=== PATIENT | male | born 1935 | race Caucasian/White ===

== ENCOUNTER 2021-10-28 10:22 | Observation (INO) ==
--- NOTE | 2021-10-28 10:35 | Emergency Department Note ---
Impression & Plan Syncopal episodes, Chronic anticoagulation, HTN (hypertension) ED Provider Note NAME: ARASH BECERRA AGE: 86 SEX: M : 1935 ARRIVES VIA: Ambulance INFORMANT: Patient ED PROVIDER(S): Murtaza Duarte DO CHIEF COMPLAINT: syncope HPI: Patient is an 86-year-old male who presents to the ER for syncope. He was sitting in the tamez's chair and felt lightheaded and passed out. He had no headache or chest pain. No belly pain, nausea, vomiting, or diarrhea. No dy suria, urgency, or frequency. No other exacerbating or remitting factors. Patient was brought in by EMS and bradycardia down again and passed out but at that time he vomited. No other exacerbating or remitting factors. He does have a history of hypertension hyperlipidemia. ROS: See above HPI for pertinent positives & negatives. A total of 10 systems reviewed and were otherwise negative. PAST MEDICAL HISTORY:See Below PAST SURGICAL HISTORY:See Below FAMILY HISTORY:See Below SOCIAL HISTORY:See Below HOME MEDICATIONS:See Below ALLERGIES:See Below VITALS:See Below PHYSICAL EXAMINATION: GENERAL: Sitting up in bed, alert, well appearing, well nourished, no distress, non-toxic EYE EXAM: normal conjunctiva. PERRL and EOM's grossly intact. OROPHARYNX: no exudate, no erythema, lips, buccal mucosa, and tongue normal and mucous membranes are moist NECK: supple, no nuchal rigidity, no adenopathy, non-tender LUNGS: Clear to auscultation. Normal chest wall mechanics HEART: no murmurs, S1 normal and S2 normal ABDOMEN: abdomen soft, non-tender, normo-active bowel sounds, no masses, no rebound or guarding. UPPER EXTREMITIES: upper extremities are grossly normal. LOWER EXTREMITIES: No pitting edema. NEURO EXAM: Normal sensorium, cranial nerves II-XII intact, normal speech, no weakness of arms, no weakness of legs. Gnueli-uq-legx intact. No drift. MEDICAL DECISION MAKING: Patient is an 86-year-old male who presents the ER for the above-stated complaint. IV was established blood was obtained. Labs show no significant leukocytosis and mild anemia at 13.3. INR was therapeutic at 3.3. BMP on LFTs bilirubin was unremarkable. Troponins were negative. Lipase was unremarkable. Covid was negative. EKG showed a sinus bradycardia with a first-degree AV blo ck. Chest x-ray was unremarkable. He is completely neurologically intact. He was updated bedside. Discussed with hospitalist for further evaluation due to recurrent syncope/x3. Discussed with Pt concerning signs and symptoms to watch out for. Pt was instructed to follow up with their PCP and discussed with the patient their option to return to the ED at anytime for persistent or worsening symptoms. The appropriate anticipatory guidance and out-patient management, including indications for return to the emergency department, were explained at length to the patient and understood. Triage Nursing notes reviewed. Limited review of prior medical records performed Vital Signs: reviewed and remarkable for no significant abnormalities Differential diagnosis: Differential diagnoses includes but is not limited to acute coronary syndrome, myocardial infarction, pericarditis, pulmonary embolus, aortic dissection, pneumonia, pneumothorax, musculoskeletal, shingles, esophageal. ER treatment provided: See below Diagnostics interpreted by me: ECG: Sinus bradycardia rate of 54 a first-degree AV block Normal axis No PVCs QTC 432 Cardiac Monitoring: An order was placed for continuous cardiac monitoring. The monitor shows a rate of 55 with sinus rhythm. Laboratory studies: As stated above and show below. Imaging studies: See below Consultation(s): Discussed with patient and hospitalist for further evaluation Procedures: none Critical Care: None Past Med/Surg History Medical History (Updated 10/28/21 @ 16:41 by Murtaza Duarte DO) DVT (deep venous thrombosis) Pulmonary emboli Surgical History (Updated 10/28/21 @ 13:04 by Angely Fu PA-C) H/O inguinal hernia repair Family History (Updated 10/28/21 @ 13:05 by Angely Fu PA-C) Mother Heart disease Hypertension Father Cancer Social History Smoking Status: Former smoker Smoking End Date: ; Second Hand Exposure: Yes; Do You Dip or Chew Tobacco: No; Tobacco Cessation Education Requested by Patient: No Hx Alcohol Use: Yes Alcohol type: wine and hard liquor Hx Substance Use: No Preferred Language: Croatian Communication Ability: Effective 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 Beliefs That Will Affect Care: None Current Living Situation: Spouse Other Information That Helps Us Care for You: No Feels Safe at Home: Yes Safety Concerns: Feels Safe At This Time Assistive Devices: Glasses Allergies Allergies Allergy/AdvReac Type Severity Reaction Status Date / Time No Known Allergies Allergy Unverified 10/28/21 11:28 Home Meds Home Medications Medication Instructions Recorded Confirmed atorvastatin 40 mg tablet 40 mg PO QPM 10/28/21 10/28/21 cholecalciferol (vitamin D3) 25 25 - 50 mcg PO DAILY 10/28/21 10/28/21 mcg (1,000 unit) tablet (Vitamin D3) lisinopril 10 1 tab PO QPM 10/28/21 10/28/21 mg-hydrochlorothiazide 12.5 mg tablet magnesium oxide 400 mg PO DAILY 10/28/21 10/28/21 terazosin 2 mg capsule 2 mg PO QPM 10/28/21 10/28/21 warfarin 5 mg tablet 2.5 mg PO 5XWK 10/28/21 10/28/21 warfarin 5 mg tablet 5 mg PO 2XWK 10/28/21 10/28/21 Results & Data (ED) Vital Signs Vital Signs - 24 hr 10/28/21 10:28 10/28/21 10:31 10/28/21 11:00 Pulse Rate 54 L Pulse Rate [Apical] 61 Respiratory Rate 15 14 Respiratory Effort / Characteristics Non-Labored Spontaneous Non-Labored Spontaneous Respiratory Depth Normal Normal Blood Pressure 154/72 H Blood Pressure [Right Arm] 146/70 H Blood Pressure Mean 99 Blood Pressure Mean [Right Arm] 95 Blood Pressure Position Sitting Pulse Oximetry 98 98 98 Oxygen Delivery Method Room Air Room Air Room Air Sepsis Recent Fever Within 48 Hours No Sepsis New/Unexplained Change in Mental Status No Sepsis Action Taken by Nursing No Action Required 10/28/21 13:00 Pulse Rate Pulse Rate [Apical] 54 L Respiratory Rate 13 Respiratory Effort / Characteristics Respiratory Depth Normal Blood Pressure Blood Pressure [Right Arm] 147/77 H Blood Pressure Mean Blood Pressure Mean [Right Arm] 100 Blood Pressure Position Pulse Oximetry 95 Oxygen Delivery Method Room Air Sepsis Recent Fever Within 48 Hours Sepsis New/Unexplained Change in Mental Status Sepsis Action Taken by Nursing Laboratory Data Result diagrams: 10/28/21 10:37 10/28/21 10:37 Lab Results 10/28/21 10/28/21 10/28/21 Range/Units 10:37 10:37 10:37 WBC 6.26 (4.8-10.8) K/uL RBC 4.24 L (4.7-6.1) M/uL Hgb 13.3 L (14.0-18.0) g/dL Hct 38.0 L (42-52) % MCV 89.6 (80-100) fL MCH 31.4 (25-34) pg MCHC 35.0 (32-36) g/dL RDW Std Deviation 42.4 (36.4-46.3) fL RDW Coeff of Mary 13.1 (11.5-14.5) % Plt Count 154 (130-400) K/uL MPV 9.9 (7.4-10.4) fL Immature Gran % (Auto) 0.2 % Neut % (Auto) 65.4 % Lymph % (Auto) 24.6 % [place] % (Auto) 8.0 % Eos % (Auto) 1.6 % Baso % (Auto) 0.2 % Neut # (Auto) 4.10 (1.4-6.5) K/uL Lymph # (Auto) 1.54 (1.2-3.4) K/uL [place] # (Auto) 0.50 (0.11-0.59) K/uL Eos # (Auto) 0.10 (0-0.5) K/uL Baso # (Auto) 0.01 (0-0.2) K/uL Immature Gran # (Auto) 0.01 (0.00-0.02) K/uL PT (9.0-12.0) Seconds INR (0.9-1.1) Sodium 136 (136-145) mmol/L Potassium 3.6 (3.5-5.1) mmol/L Chloride 104 (98-107) mmol/L Carbon Dioxide 25 (21-32) mmol/L Anion Gap 7 (3-11) BUN 23 (6-23) mg/dl Creatinine 1.05 (0.6-1.4) mg/dl Est Cr Clr Drug Dosing 54.8 ml/min Est GFR ( Amer) 74.7 ml/min Est GFR (Non-Af Amer) 64.4 ml/min BUN/Creatinine Ratio 21.9 H (10-20) Glucose 129 H (70-99(Fasting)) mg/dl Calcium 9.6 (8.5-10.1) mg/dl Total Bilirubin 0.5 (0.2-1.0) mg/dl AST 21 (13-39) U/L ALT 19 (7-52) U/L Alkaline Phosphatase 77 (34-104) U/L Troponin I High Sens Cancelled 12.8 Total Protein 6.7 (6.0-8.3) gm/dl Albumin 4.0 (3.4-5.0) gm/dl Globulin 2.7 (2.5-4.0) gm/dl Albumin/Globulin Ratio 1.5 (0.9-2) Lipase 11 (11-82) U/L SARS-CoV-2, RNA, NAAT (NEGATIVE) 10/28/21 10/28/21 10/28/21 Range/Units 10:37 10:45 12:12 WBC (4.8-10.8) K/uL RBC (4.7-6.1) M/uL Hgb (14.0-18.0) g/dL Hct (42-52) % MCV (80-100) fL MCH (25-34) pg MCHC (32-36) g/dL RDW Std Deviation (36.4-46.3) fL RDW Coeff of Mary (11.5-14.5) % Plt Count (130-400) K/uL MPV (7.4-10.4) fL Immature Gran % (Auto) % Neut % (Auto) % Lymph % (Auto) % [place] % (Auto) % Eos % (Auto) % Baso % (Auto) % Neut # (Auto) (1.4-6.5) K/uL Lymph # (Auto) (1.2-3.4) K/uL [place] # (Auto) (0.11-0.59) K/uL Eos # (Auto) (0-0.5) K/uL Baso # (Auto) (0-0.2) K/uL Immature Gran # (Auto) (0.00-0.02) K/uL PT 32.9 H (9.0-12.0) Seconds INR 3.3 H (0.9-1.1) Sodium (136-145) mmol/L Potassium (3.5-5.1) mmol/L Chloride (98-107) mmol/L Carbon Dioxide (21-32) mmol/L Anion Gap (3-11) BUN (6-23) mg/dl Creatinine (0.6-1.4) mg/dl Est Cr Clr Drug Dosing ml/min Est GFR ( Amer) ml/min Est GFR (Non-Af Amer) ml/min BUN/Creatinine Ratio (10-20) Glucose (70-99(Fasting)) mg/dl Calcium (8.5-10.1) mg/dl Total Bilirubin (0.2-1.0) mg/dl AST (13-39) U/L ALT (7-52) U/L Alkaline Phosphatase (34-104) U/L Troponin I High Sens 10.8 Total Protein (6.0-8.3) gm/dl Albumin (3.4-5.0) gm/dl Globulin (2.5-4.0) gm/dl Albumin/Globulin Ratio (0.9-2) Lipase (11-82) U/L SARS-CoV-2, RNA, NAAT NEGATIVE (NEGATIVE) Imaging Data Radiologist's Impression: Chest X-Ray 10/28/21 10:31 XR chest 1V portable CLINICAL HISTORY: Chest Pain. COMPARISON STUDY: No previous studies for comparison. TECHNIQUE: 1 view of the chest FINDINGS: Single frontal view of the chest demonstrates the cardiomediastinal silhouette to be within normal limits. The lungs are clear of alveolar opacities. There is no evidence for pleural effusion. There is no evidence for vascular congestion. There is no acute osseous pathology. IMPRESSION: 1. No acute cardiopulmonary disease. ACT 112: Negative or not required by law. Electronically signed by: Scott Sierra M.D. 10/28/2021 10:58 AM Discharge Plan Visit Data Chief Complaint: Syncope Stated Complaint: SYNCOPE ED Provider: Murtaza Duarte Discharge Problem: Syncopal episodes, Chronic anticoagulation, HTN (hypertension) Patient Disposition: Admitted As Inpatient Discharge Instructions Interventions: ED Discharge Assessment Last Done: 10/28/21 14:46
[2021-10-28 10:49] LABS: Basophils # (auto) 0.01 K/uL (0-0.2); Basophils % (auto) 0.2 %; Eosinophils % (auto) 1.6 %; Hemoglobin 13.3 g/dL (14.0-18.0); Immature Granulocytes # (auto) 0.01 K/uL (0.00-0.02); Immature Granulocytes % (auto) 0.2 %; Lymphocytes # (auto) 1.54 K/uL (1.2-3.4); Lymphocytes % (auto) 24.6 %; Mean Corpuscular Hemoglobin 31.4 pg (25-34); Mean Corpuscular Volume 89.6 fL (80-100); Mean Platelet Volume 9.9 fL (7.4-10.4); Neutrophils % (auto) 65.4 %; Platelet Count 154 K/uL (130-400); RDW Coefficient of Variation 13.1 % (11.5-14.5); RDW Standard Deviation 42.4 fL (36.4-46.3); Red Blood Count 4.24 M/uL (4.7-6.1); White Blood Count 6.26 K/uL (4.8-10.8)
--- NOTE | 2021-10-28 10:59 | XRay Report ---
XR chest 1V portable CLINICAL HISTORY: Chest Pain. COMPARISON STUDY: No previous studies for comparison. TECHNIQUE: 1 view of the chest FINDINGS: Single frontal view of the chest demonstrates the cardiomediastinal silhouette to be within normal li mits. The lungs are clear of alveolar opacities. There is no evidence for pleural effusion. There is no evidence for vascular congestion. There is no acute osseous pathology. IMPRESSION: 1. No acute cardiopulmonary disease. ACT 112: Negative or not required by law. Electronically signed by: Scott Sierra M.D. 10/28/2021 10:58 AM
[2021-10-28 11:26] LABS: Albumin Globulin Ratio 1.5 (0.9-2); BUN Creatinine Ratio 21.9 (10-20); Bilirubin,Total 0.5 mg/dl (0.2-1.0); Calcium 9.6 mg/dl (8.5-10.1); Creatinine Clr Calc Pharmacy 54.8 ml/min; Est GFR (African American) 74.7 ml/min; Est GFR (Non-African American) 64.4 ml/min; Globulin 2.7 gm/dl (2.5-4.0); Potassium 3.6 mmol/L (3.5-5.1); Total Protein 6.7 gm/dl (6.0-8.3)
[2021-10-28 11:28] LABS: Troponin I High Sensitivity 12.8 pg/ml (0-20)
--- NOTE | 2021-10-28 12:57 | History & Physical Report ---
Date of Service October 28, 2021 Assessment & Plan (1) Syncopal episodes: Plan: - Admit to tele for observation for r/o of syncopal episodes. Hx of syncope years ago was due to PVCs vs vasovagal episode today from being in neck flexion position for cazares trimming, towel around neck during hair being cut may have also precipitated syncope. - Trended cardiac biomarkers, negative x 2 sets with high sensitivity trops - EKG reviewed from previous in [facility] with attending-- has a slight Twave inversion in III but otherwise is grossly unchanged. Pt denies any cardiac symptoms during evaluation. - Check 2 D echo and carotid doppler - PT/OT consulted - Cont lisionpril/hctz, terazosin, and coumadin - Consider cardiology consult pending course (2) Chronic anticoagulation: Plan: - hx of DVT and PE, chronic - Check INR now, follow with am labs (3) HLD (hyperlipidemia): Plan: - Cont statin therapy (4) HTN (hypertension): Plan: - Continue antihypertensives as above DVT ppx: -teds, coumadin CODE: Full - discussed with the patient at bedside Dispo: From home, lives with Deepti, keep on observation, likely dc within 24 hours. History of Present Illness Chief Complaint: Syncopal episode Primary Care Provider: Tereso Randall, DO This is an 86 yo M with PMhx of HTN, HLD, DVT bilaterally and PE on chronic anticoagulation, hx of vasovagal syncope, who presents for complaints of syncopal episodes x 2 earlier today. Pt reports feeling well, like his usual self within the past 24 hours. Pt dropped his car off at a local garage for service, and proceeded to walk 4 blocks to the [place]. He typically is very physically active, walking, participating in 15 deep knee squats daily, but felt like it was somewhat difficult this morning due to muscle stiffness and a little soreness. He was out raking his yard yesterday, but felt fine at that time. Once to the [place], the tamez cut his hair, and then shaved/trimmed up his cazares which hadn't been done in the past 2 years because of COVID pandemic. After sitting in the chair for at least 15 minutes he passed out, but didn't fall out of the chair, no trauma or injuryies sustained. Then he came to, and felt the return of dizziness and diaphoresis, and when he came to the second time, was lying on the floor. He vomited after the second syncopal episode. His who witnessed the event says that he was lowered to the ground. EMS arrived and transported him to the ER. He denies any chest pain, shortness of breath, dizziness, or changes in vision. This passing out has happened to him before but it was at least 10 years ago, where he was told it could have been due to PVCs vs vasovagal episodes. He follows routinely with cardiology, Dr. Goldberg, and saw him a few months ago with a good reort. He denies any recent medication changes and did not miss any medications this morning. He is asking for food as hasn't eaten since 7 am. Pt denies any other current complaints, and feels he is back at his baseline. Denies smoking history or tobacco use. Admits to having one rivera drink daily in the evenings with his . Allergies Allergy/AdvReac Type Severity Reaction Status Date / Time No Known Allergies Allergy Unverified 10/28/21 11:28 Home Medications Medication Instructions Recorded Confirmed Type atorvastatin 40 mg tablet 40 mg PO QPM 10/28/21 10/28/21 History cholecalciferol (vitamin D3) 25 25 - 50 mcg PO DAILY 10/28/21 10/28/21 History mcg (1,000 unit) tablet (Vitamin D3) lisinopril 10 1 tab PO QPM 10/28/21 10/28/21 History mg-hydrochlorothiazide 12.5 mg tablet magnesium oxide 400 mg PO DAILY 10/28/21 10/28/21 History terazosin 2 mg capsule 2 mg PO QPM 10/28/21 10/28/21 History warfarin 5 mg tablet 2.5 mg PO 5XWK 10/28/21 10/28/21 History warfarin 5 mg tablet 5 mg PO 2XWK 10/28/21 10/28/21 History Past Med/Surg History Medical History (Updated 10/28/21 @ 14:04 by Angely Fu PA-C) DVT (deep venous thrombosis) Pulmonary emboli Surgical History (Updated 10/28/21 @ 13:04 by Angely Fu PA-C) H/O inguinal hernia repair Family History (Updated 10/28/21 @ 13:05 by Angely Fu PA-C) Mother Heart disease Hypertension Father Cancer Social History Smoking Status: Never smoker Feels Safe at Home: Yes Review of Systems Review of Systems: Constitutional: No fever, sweats or chills Eyes: No diplopia, no worsening or blurred vision ENT: normal hearing, no trouble swallowing Respiratory: No cough, sputum, dyspnea at rest or on exertion Cardiovascular: No chest pain, tightness or palpitations Abdomen: No pain, nausea, vomiting, diarrhea or constipation Musculoskeletal: As per HPI. No joint pain, calf pain, swelling Neurologic: No weakness, numbness/tingling, or balance problems Psychiatric: No anxiety or depression Skin: No rash or itch Physical Exam Physical Exam: General: awake, alert, no apparent distress, appears younger than stated age Head: Normocephalic, atraumatic ENT: PERRL, EOMI, no pharyngeal exudate, mucous membranes moist Chest: Clear to auscultation, on room air, no adventitious breath sounds Cardiac: Regular rate and rhythm with few PVCs, no carotid bruits, no cardiac murmur, no JVD, normal peripheral pulses, good capillary refill Abdominal: NABS x 4 quadrants, soft, nondistended, nontender to palpation, no rebound or guarding Extremities: Normal inspection, no peripheral edema or erythema, calfs nontender to palpation Psych: Normal mood and affect Neuro: AAO x 3, strength intact bilaterally and rated 5/5, no motor deficits, speech is clear, no peripheral sensory deficits Results & Data Results & Data ([facility]) Vital Signs (Past 12 Hours) Vital Signs Pulse Pulse Resp BP BP Pulse Ox 10/28/21 11:00 61 14 146/70 H 98 10/28/21 10:31 98 10/28/21 10:28 54 L 15 154/72 H 98 Laboratory Results 10/28/21 10/28/21 10/28/21 12:12 10:45 10:37 WBC RBC Hgb Hct MCV MCH MCHC RDW Std Deviation RDW Coeff of Mary Plt Count MPV Immature Gran % (Auto) Neut % (Auto) Lymph % (Auto) [place] % (Auto) Eos % (Auto) Baso % (Auto) Neut # (Auto) Lymph # (Auto) [place] # (Auto) Eos # (Auto) Baso # (Auto) Immature Gran # (Auto) Sodium 136 Potassium 3.6 Chloride 104 Carbon Dioxide 25 Anion Gap 7 BUN 23 Creatinine 1.05 Est Cr Clr Drug Dosing 54.8 Est GFR ( Amer) 74.7 Est GFR (Non-Af Amer) 64.4 BUN/Creatinine Ratio 21.9 H Glucose 129 H Calcium 9.6 Total Bilirubin 0.5 AST 21 ALT 19 Alkaline Phosphatase 77 Troponin I High Sens 10.8 12.8 Total Protein 6.7 Albumin 4.0 Globulin 2.7 Albumin/Globulin Ratio 1.5 Lipase 11 SARS-CoV-2, RNA, NAAT NEGATIVE 10/28/21 10/28/21 10:37 10:37 WBC 6.26 RBC 4.24 L Hgb 13.3 L Hct 38.0 L MCV 89.6 MCH 31.4 MCHC 35.0 RDW Std Deviation 42.4 RDW Coeff of Mary 13.1 Plt Count 154 MPV 9.9 Immature Gran % (Auto) 0.2 Neut % (Auto) 65.4 Lymph % (Auto) 24.6 [place] % (Auto) 8.0 Eos % (Auto) 1.6 Baso % (Auto) 0.2 Neut # (Auto) 4.10 Lymph # (Auto) 1.54 [place] # (Auto) 0.50 Eos # (Auto) 0.10 Baso # (Auto) 0.01 Immature Gran # (Auto) 0.01 Sodium Potassium Chloride Carbon Dioxide Anion Gap BUN Creatinine Est Cr Clr Drug Dosing Est GFR ( Amer) Est GFR (Non-Af Amer) BUN/Creatinine Ratio Glucose Calcium Total Bilirubin AST ALT Alkaline Phosphatase Troponin I High Sens Cancelled Total Protein Albumin Globulin Albumin/Globulin Ratio Lipase SARS-CoV-2, RNA, NAAT Diagnostic Findings Chest X-Ray 10/28/21 10:31 XR chest 1V portable CLINICAL HISTORY: Chest Pain. COMPARISON STUDY: No previous studies for comparison. TECHNIQUE: 1 view of the chest FINDINGS: Single frontal view of the chest demonstrates the cardiomediastinal silhouette to be within normal limits. The lungs are clear of alveolar opacities. There is no evidence for pleural effusion. There is no evidence for vascular congestion. There is no acute osseous pathology. IMPRESSION: 1. No acute cardiopulmonary disease. ACT 112: Negative or not required by law. Electronically signed by: Scott Sierra M.D. 10/28/2021 10:58 AM ECG Additional Comments: 28-OCT-2021 10:30:40 [facility]-EDSTAT ROUTINE RETRIEVAL Sinus bradycardia with 1st degree A-V block Otherwise normal ECG No previous ECGs available 25mm/[id number] 241CID: 3Referred by: ED Unconfirmed Vent. rate 54 BPM OK interval 240 ms QRS duration 112 ms QT/QTc 456/432 ms Code Status & VTE Plan Code Status Full code - discussed with the patient at bedside Supervising Physician Co-Signing Physician Notes Pt is a 86 y/o M with hx of DVT/PE on Coumadin, HLD, 1st degree heart block, hx of vasovagal syncope, HTN admitted for syncope with prodromal syndrome. Per pt he was getting a haircut and started to feel light headed with darkening of the vision. Unsure how long he lost consciousness for and denied any head trauma. No confusion after the syncopal episode. Denied any CP or palpitation or SOB before the syncope. Received his 4th COVID vaccine 4 days ago: denied any recent GI symptoms or severe SE from the vaccine Echo 05/2019: The qualitative LV ejection fraction is 55-59% (normal). The LV wall thickness is mildly increased (concentric). The basal septum is thickened and angulated consistent with sigmoid septum. The right ventricular systolic function is normal as assessed by tricuspid annular plane systolic excursion (TAPSE) (normal >1.7 cm). The left atrium is moderately enlarged (42-48 ml/m^2). The left ventricular diastolic function is mildly abnormal (grade I). Mild aortic valve regurgitation is present. Mild tricuspid regurgitation is present. There is mild pulmonary regurgitation. PE: NAD Cardiac: Normal S1/S2, possible systolic murmur Lungs: CTA, no wheezing or crackles Abd: ND, NT, soft MSK: no edema Psych: AAOx3, normal affect A/P: Syncope: -likely vasovagal -VSS in the ER except slight increase in BP -Hs Trop: neg x2 -EKG: TWI on lead III (which is new), sinus bradycardia with 1st degree heart block -due to age and syncope with murmur will get Echo, and carotid Doppler --- depending on the tele report and echo will consult cards -admit to tele -will continue his HTN meds Agree with A/P by Angely Fu PA-C
[2021-10-28 14:42] LABS: INR 3.3 (0.9-1.1); Prothrombin Time 32.9 Seconds (9.0-12.0)
[2021-10-28] MEDS ORDERED: ACETAMINOPHEN 325 MG TAB PO PRN (15:27)
[2021-10-28] MEDS ORDERED: ONDANSETRON INJ 2 MG/ML 2 ML VIAL IV PRN (15:27)
[2021-10-28] MEDS ORDERED: LISINOPRIL/HCTZ 10/12.5MG TAB PO ONE (17:15)
[2021-10-28] MEDS ORDERED: ATROPINE SULFATE 0.1 MG/ML 10ML SYR IV ONE (20:14)
[2021-10-28] MEDS ORDERED: TERAZOSIN HCL 1 MG CAP PO SCH (21:00)
[2021-10-28] MEDS ORDERED: LISINOPRIL/HCTZ 10/12.5MG TAB PO SCH ×2 (21:00)
[2021-10-28] MEDS ORDERED: ATORVASTATIN 40 MG TAB PO SCH (21:00)
--- NOTE | 2021-10-28 21:01 | Ultrasound Report ---
ULTRASOUND OF THE CAROTID ARTERIES CLINICAL HISTORY: vasovagal vs cardiac etiology of syncope COMPARISON: None available at the time of this dictation. TECHNIQUE: Real-time, grayscale, and color Doppler sonography of the carotid arteries is performed. I mages are reviewed in the transverse and longitudinal planes. FINDINGS: The carotid arteries are patent bilaterally and demonstrate antegrade flow. There is moderate atheros clerotic plaque on the right and moderate atherosclerotic plaque on the left. Normal doppler arterial waveforms are seen throughout. Velocity measurements are listed below. Common carotid peak systolic velocity (cm/sec): RIGHT: 88 LEFT: 108 ICA peak systolic velocity (cm/sec): RIGHT: 86 LEFT: 87 ICA/CC peak systolic ratio: RIGHT: 0.98 LEFT: 0.81 Antegrade flow was shown in the vertebral arteries. The external carotid arteries are patent. IMPRESSION: 1. There is no sonographic evidence of hemodynamically significant stenosis in the right or left car otid arterial system. 2. Antegrade flow is shown in the vertebral arteries. Society of Radiologists in Ultrasound consensus guidelines: Normal: ICA PSV is <125 cm/sec and no plaque or intimal thickening is visible sonographically additional criteria include ICA/CCA PSV ratio <2.0 and ICA EDV <40 cm/sec <50% ICA stenosis: ICA PSV is <125 cm/sec and plaque or intimal thickening is visible sonographically additional criteria include ICA/CCA PSV ratio <2.0 and ICA EDV <40 cm/sec 50-69% ICA stenosis: ICA PSV is 125-230 cm/sec and plaque is visible sonographically additional criteria include ICA/CCA PSV ratio of 2.0-4.0 and ICA EDV of 40-100 cm/sec ?70% ICA stenosis but less than near occlusion: ICA PSV is >230 cm/sec and visible plaque and luminal narrowing are seen at black-scale and color Dopp ler ultrasound (the higher the Doppler parameters lie above the threshold of 230 cm/sec, the greater the likelihood of severe disease) additional criteria include ICA/CCA PSV ratio >4 and ICA EDV >100 cm/sec ACT 112: Negative or not required by law. Electronically signed by: Keshawn Vargas M.D. 10/28/2021 9:00 PM
--- NOTE | 2021-10-29 05:46 | Electrocardiogram Report ---
Test Reason : Blood Pressure : / mmHG Vent. Rate : 054 BPM Atrial Rate : 054 BPM P-R Int : 240 ms QRS Dur : 112 ms QT Int : 456 ms P-R-T Axes : 058 -15 011 degrees QTc Int : 432 ms Sinus bradycardia with 1st degree A-V block Otherwise normal ECG No previous ECGs available Confirmed by Joce Brandon ([id number]) on 10/29/2021 5:46:21 AM Referred By: ED Confirmed By:Joce Brandon
[2021-10-29 05:53] LABS: Hematocrit (blood only) 35.7 % (42-52); Hemoglobin 12.2 g/dL (14.0-18.0); Mean Corpuscular Hgb Conc 34.2 g/dL (32-36); Mean Corpuscular Volume 90.8 fL (80-100); Mean Platelet Volume 9.4 fL (7.4-10.4); Platelet Count 170 K/uL (130-400); RDW Coefficient of Variation 12.9 % (11.5-14.5); RDW Standard Deviation 43.2 fL (36.4-46.3); Red Blood Count 3.93 M/uL (4.7-6.1); White Blood Count 5.67 K/uL (4.8-10.8)
[2021-10-29 06:04] LABS: INR 3.4 (0.9-1.1); Prothrombin Time 34.2 Seconds (9.0-12.0)
[2021-10-29 06:19] LABS: Albumin Globulin Ratio 1.4 (0.9-2); Albumin Level 3.6 gm/dl (3.4-5.0); BUN Creatinine Ratio 19.6 (10-20); Bilirubin,Total 0.5 mg/dl (0.2-1.0); Calcium 9.1 mg/dl (8.5-10.1); Creatinine Clr Calc Pharmacy 53.8 ml/min; Globulin 2.5 gm/dl (2.5-4.0); Magnesium 1.8 mg/dl (1.7-2.4); Phosphorus 2.9 mg/dl (2.5-4.9); Potassium 3.7 mmol/L (3.5-5.1); Total Protein 6.1 gm/dl (6.0-8.3)
--- NOTE | 2021-10-29 08:06 | Cardiology Consultation ---
Date of Consultation October 29, 2021 Assessment & Plan (1) Syncopal episodes: (2) Chronic anticoagulation: The patient is anxious to return home. He states he does a lot of things for his . I am not sure that she is independent or able to live without him. In any case, I believe that he should have an echocardiogram to rule out structural heart disease and be on the monitor at least 24 hours before discharge. After discharge he should have a ZIO monitor for 2 weeks and a follow-up with us as an outpatient. History of Present Illness Attending Physician: Dell Pruett MD History of Present Illness This is an 86-year-old male patient with a history as outlined below. He has a history of vasovagal syncope however, the last event according the patient was 15 to 20 years ago. He has had no recent dizziness or lightheadedness. No heart palpitations or tachycardia. No previous history of ischemic heart disease. He is a very active 86-year-old male patient. He dropped his car off to be serviced and walked 4 blocks to the [employer] to get his haircut. He was just having his cazares trimmed. There was no compression on his carotid and he does not remember leaning his head back. He states that he woke in the [employer] chair and was told that he passed out. They called the paramedics but when he stood up to get out of the [employer] chair he became very nauseous he threw up and passed out. In the emergency squad he remembers what he describes as an upset stomach and felt he had to vomit again. By the time he presented to the emergency department he was feeling well. He has no complaints this morning. Telemetry overnight indicates a normal sinus rhythm with one very very brief episode of PAT. Cardiac markers were negative. Patient has had no recent activity related chest pain or progressive shortness of breath. At the time of admission his INR was therapeutic. EKG showed no acute changes. He has a chronic first-degree AV block. Past medical history: 1.Longstanding hypertension. 2.History of past DVT and pulmonary emboli, on chronic anticoagulation with warfarin. 3.History of dyslipidemia. 4.Past history of vasovagal syncope. Allergies Allergy/AdvReac Type Severity Reaction Status Date / Time No Known Allergies Allergy Unverified 10/28/21 11:28 Home Medications Medication Instructions Recorded Confirmed Type atorvastatin 40 mg tablet 40 mg PO QPM 10/28/21 10/28/21 History cholecalciferol (vitamin D3) 25 25 - 50 mcg PO DAILY 10/28/21 10/28/21 History mcg (1,000 unit) tablet (Vitamin D3) lisinopril 10 1 tab PO QPM 10/28/21 10/28/21 History mg-hydrochlorothiazide 12.5 mg tablet magnesium oxide 400 mg PO DAILY 10/28/21 10/28/21 History terazosin 2 mg capsule 2 mg PO QPM 10/28/21 10/28/21 History warfarin 5 mg tablet 2.5 mg PO 5XWK 10/28/21 10/28/21 History warfarin 5 mg tablet 5 mg PO 2XWK 10/28/21 10/28/21 History Patient History Medical History DVT (deep venous thrombosis) Pulmonary emboli Surgical History H/O inguinal hernia repair Family History Mother Heart disease Hypertension Father Cancer Social History Smoking Status: Former smoker Smoking End Date: ; Second Hand Exposure: Yes; Do You Dip or Chew Tobacco: No; Tobacco Cessation Education Requested by Patient: No Hx Alcohol Use: Yes Alcohol type: wine and hard liquor Hx Substance Use: No Preferred Language: Bulgarian Communication Ability: Effective Invasive Physician Required: No Beliefs That Will Affect Care: None Current Living Situation: Spouse Other Information That Helps Us Care for You: No Feels Safe at Home: Yes Safety Concerns: Feels Safe At This Time Assistive Devices: Glasses Review of Systems Review of Systems: Review of Systems: See HPI for pertinent positives. All other 10 point review of systems are negative. Physical Exam Physical Exam: General: no acute distress and stated age Head: normocephalic, no masses, lesions, tenderness or abnormalities Eyes: conjunctiva are pink and non-injected, sclera clear Neck: supple, no adenopathy, no bruits, normal jugular venous pulse, no hepatojugular reflux Chest: normal shape and normal respiratory effort Lungs: clear to auscultation and percussion Cardiac Exam: - regular rate & rhythm, no murmurs gallops or rubs - normal S1, normal S2 Pulses: 2(+) throughout Abdomen: abdomen soft, non-tender, no abnormal masses and no hepatosplenomegaly Musculoskeletal: no gait disturbance, no joint inflammation, no deforming arthritis Extremities: no edema and no cyanosis Neuro: grossly normal exam Results & Data ([facility]) Vital Signs (Past 12 Hours) Vital Signs Temp Pulse Pulse Resp BP BP Pulse Ox 10/29/21 07:32 36.9 C 71 18 121/76 93 10/29/21 07:17 53 L 10/29/21 04:05 36.6 C 74 18 137/72 94 10/28/21 23:36 36.6 C 87 18 120/61 97 10/28/21 23:14 56 L Laboratory Results Laboratory Results - last 24 hr 10/28/21 10/28/21 10/28/21 10:37 10:37 10:37 WBC 6.26 RBC 4.24 L Hgb 13.3 L Hct 38.0 L MCV 89.6 MCH 31.4 MCHC 35.0 RDW Std Deviation 42.4 RDW Coeff of Mary 13.1 Plt Count 154 MPV 9.9 Immature Gran % (Auto) 0.2 Neut % (Auto) 65.4 Lymph % (Auto) 24.6 [place] % (Auto) 8.0 Eos % (Auto) 1.6 Baso % (Auto) 0.2 Neut # (Auto) 4.10 Lymph # (Auto) 1.54 [place] # (Auto) 0.50 Eos # (Auto) 0.10 Baso # (Auto) 0.01 Immature Gran # (Auto) 0.01 PT INR Sodium 136 Potassium 3.6 Chloride 104 Carbon Dioxide 25 Anion Gap 7 BUN 23 Creatinine 1.05 Est Cr Clr Drug Dosing 54.8 Est GFR ( Amer) 74.7 Est GFR (Non-Af Amer) 64.4 BUN/Creatinine Ratio 21.9 H Glucose 129 H Calcium 9.6 Phosphorus Magnesium Total Bilirubin 0.5 AST 21 ALT 19 Alkaline Phosphatase 77 Troponin I High Sens Cancelled 12.8 Total Protein 6.7 Albumin 4.0 Globulin 2.7 Albumin/Globulin Ratio 1.5 Lipase 11 SARS-CoV-2, RNA, NAAT 10/28/21 10/28/21 10/28/21 10:37 10:45 12:12 WBC RBC Hgb Hct MCV MCH MCHC RDW Std Deviation RDW Coeff of Mary Plt Count MPV Immature Gran % (Auto) Neut % (Auto) Lymph % (Auto) [place] % (Auto) Eos % (Auto) Baso % (Auto) Neut # (Auto) Lymph # (Auto) [place] # (Auto) Eos # (Auto) Baso # (Auto) Immature Gran # (Auto) PT 32.9 H INR 3.3 H Sodium Potassium Chloride Carbon Dioxide Anion Gap BUN Creatinine Est Cr Clr Drug Dosing Est GFR ( Amer) Est GFR (Non-Af Amer) BUN/Creatinine Ratio Glucose Calcium Phosphorus Magnesium Total Bilirubin AST ALT Alkaline Phosphatase Troponin I High Sens 10.8 Total Protein Albumin Globulin Albumin/Globulin Ratio Lipase SARS-CoV-2, RNA, NAAT NEGATIVE 10/29/21 10/29/21 10/29/21 05:40 05:40 05:40 WBC 5.67 RBC 3.93 L Hgb 12.2 L Hct 35.7 L MCV 90.8 MCH 31.0 MCHC 34.2 RDW Std Deviation 43.2 RDW Coeff of Mary 12.9 Plt Count 170 MPV 9.4 Immature Gran % (Auto) Neut % (Auto) Lymph % (Auto) [place] % (Auto) Eos % (Auto) Baso % (Auto) Neut # (Auto) Lymph # (Auto) [place] # (Auto) Eos # (Auto) Baso # (Auto) Immature Gran # (Auto) PT 34.2 H INR 3.4 H Sodium 136 Potassium 3.7 Chloride 104 Carbon Dioxide 27 Anion Gap 5 BUN 21 Creatinine 1.07 Est Cr Clr Drug Dosing 53.8 Est GFR ( Amer) 73.0 Est GFR (Non-Af Amer) 63.0 BUN/Creatinine Ratio 19.6 Glucose 114 H Calcium 9.1 Phosphorus 2.9 Magnesium 1.8 Total Bilirubin 0.5 AST 17 ALT 15 Alkaline Phosphatase 68 Troponin I High Sens Total Protein 6.1 Albumin 3.6 Globulin 2.5 Albumin/Globulin Ratio 1.4 Lipase SARS-CoV-2, RNA, NAAT Medications Administered Current Inpatient Medications Acetaminophen (Acetaminophen 325 Mg Tab) 650 mg PO Q4H PRN PRN Reason: Moderate Pain Stop: 11/27/21 15:26 Atorvastatin Calcium (Atorvastatin 40 Mg Tab) 40 mg PO QPM [facility] Stop: 11/27/21 20:59 Last Admin: 10/28/21 21:10 Dose: 40 mg Documented by: Lisinopril/HCTZ (Lisinopril/Hctz 10/12.5mg Tab) 1 tab PO QPM [facility] Stop: 11/28/21 20:59 Magnesium Oxide (Magnesium Oxide 400 Mg Tab) 400 mg PO DAILY [facility] Stop: 11/28/21 08:59 Ondansetron HCl (Ondansetron Inj 2 Mg/Ml 2 Ml Vial) 4 mg IV Q4H PRN PRN Reason: Nausea And Vomiting Stop: 11/27/21 15:26 Terazosin HCl (Terazosin Hcl 1 Mg Cap) 2 mg PO QPM [facility] Stop: 11/27/21 20:59 Last Admin: 10/28/21 21:09 Dose: 2 mg Documented by: Vitamin D (Cholecalciferol 1,000 Units 25 Mcg Tab) 1,000 units PO DAILY [facility] Stop: 11/28/21 08:59 Warfarin Sodium (Warfarin Sod 2.5 Mg Tab) 2.5 mg PO [id number] [facility] Stop: 11/28/21 15:59 Warfarin Sodium (Warfarin Sod 5 Mg Tab) 5 mg PO [id number] [facility] Stop: 12/01/21 15:59 (1) Syncopal episodes Syncope type: unspecified Qualified Code(s): R55 - Syncope and collapse
[2021-10-29] MEDS ORDERED: MAGNESIUM OXIDE 400 MG TAB PO SCH (09:00)
[2021-10-29] MEDS ORDERED: CHOLECALCIFEROL 1,000 UNITS 25 MCG TAB PO SCH (09:00)
--- NOTE | 2021-10-29 14:18 | Discharge Summary ---
Date of Service October 29, 2021 Admission HPI Per Admitting Provider This is an 86 yo M with PMhx of HTN, HLD, DVT bilaterally and PE on chronic anticoagulation, hx of vasovagal syncope, who presents for complaints of syncopal episodes x 2 earlier today. Pt reports feeling well, like his usual self within the past 24 hours. Pt dropped his car off at a local garage for service, and proceeded to walk 4 blocks to the [employer]. He typically is very physically active, walking, par ticipating in 15 deep knee squats daily, but felt like it was somewhat difficult this morning due to muscle stiffness and a little soreness. He was out raking his yard yesterday, but felt fine at that time. Once to the [employer], the [employer] cut his hair, and then shaved/trimmed up his cazares which hadn't been done in the past 2 years because of COVID pandemic. After sitting in the chair for at least 15 minutes he passed out, but didn't fall out of the chair, no trauma or injuryies sustained. Then he came to, and felt the return of dizziness and diaphoresis, and when he came to the second time, was lying on the floor. He vomited after the second syncopal episode. His who witnessed the event says that he was lowered to the ground. EMS arrived and transported him to the ER. He denies any chest pain, shortness of breath, dizziness, or changes in vision. This passing out has happened to him before but it was at least 10 years ago, where he was told it could have been due to PVCs vs vasovagal episodes. He follows routinely with cardiology, Dr. Goldberg, and saw him a few months ago with a good reort. He denies any recent medication changes and did not miss any medications this morning. He is asking for food as hasn't eaten since 7 am. Pt denies any other current complaints, and feels he is back at his baseline. Denies smoking history or tobacco use. Admits to having one rivera drink daily in the evenings with his . Admission Exam Per Admitting Provider General: awake, alert, no apparent distress, appears younger than stated age Head: Normocephalic, atraumatic ENT: PERRL, EOMI, no pharyngeal exudate, mucous membranes moist Chest: Clear to auscultation, on room air, no adventitious breath sounds Cardiac: Regular rate and rhythm with few PVCs, no carotid bruits, no cardiac murmur, no JVD, normal peripheral pulses, good capillary refill Abdominal: NABS x 4 quadrants, soft, nondistended, nontender to palpation, no rebound or guarding Extremities: Normal inspection, no peripheral edema or erythema, calfs nontender to palpation Psych: Normal mood and affect Neuro: AAO x 3, strength intact bilaterally and rated 5/5, no motor deficits, speech is clear, no peripheral sensory deficits Principal Diagnosis Syncope Discharge Exam General: Elderly male, sitting comfortably in bed, not in distress, on room air HEENT: EOMI, MARILYN, MMM Chest: Clear breath sounds bilaterally, no wheezes or crackles CVS: Regular rate and rhythm, normal heart sounds, no murmur Abdomen: Soft, non tender, not distended, normal bowel sounds Neuro: Awake, alert, oriented, conversing well, non focal Extremities: No cyanosis, clubbing or edema Discharge Data Allergies Allergy/AdvReac Type Severity Reaction Status Date / Time No Known Allergies Allergy Unverified 10/28/21 11:28 Consultations 10/28/21 12:42 ED Decision to Admit Stat 10/29/21 08:16 Consult Cardiology Routine Ordered Studies 10/28/21 13:50 US carotid doppler BI Routine Hospital Course (1) Syncopal episodes: - unclear cause, could be vasovagal, need to rule out cardiac cause. Work up unremarkable so far. Carotid ultrasound with no hemodynamically significant stenosis. Echo with no significant finding- EF 60-65% with grade 1 diastolic function with mild AV sclerosis with no signifcant stenosis. Tele unremarkable except for a brief episode of PAT this morning. Labs unremarkable. Seen by cardio- cleared for discharge and recommended OP zio x 2 weeks and follow up. I spoke to Dr Jaramillo prior to discharge. PT also cleared for discharge- no orthostasis, no issues, at baseline. (2) Chronic anticoagulation: - hx of DVT and PE, chronic - INR 3.4, recommend holding coumadin today and resume from tomorrow with repeat INR check in 1-2 days and follow up with anticoag clinic for further management. (3) HLD (hyperlipidemia): - Cont statin therapy (4) HTN (hypertension): - Continue home prinzide Total Time Total Time Spent Total Time Spent (In Minutes): 34 Discharge Plan Discharge Items Patient Disposition: Home - Self-Care Reason For Visit: SYNCOPE Discharge Diagnosis: Syncope Activity: Resume your previous activity Non-emergency contact: Primary Care Provider and Trucker Hand Call non-emergency contact if: you have any medication questions and your symptoms worsen Follow-up/Referrals: [facility] [Other] (The cardiology office will call you to have a Zio Monitor placed. ) Tereso Randall DO [Primary Care Provider] - 11/05/21 2:20 pm (11/05/2021 2:20 PM Provider Tereso Randall DO Department [facility] ) Diet: Regular Addtl Attending Provider Instructions: We did not find a cause of your passing out. It could be vasovagal but we need to rule out cardiac cause. Your work up here has been remarkable so far. You were seen by cardiology. Please see cardiology in the office for Zio monitor to monitor your heart rhythm continuously. They will call you for appointment. Your INR is high at 3.4 today. Hold your coumadin today and you can likely resume from tomorrow. Please get your INR checked in a day or two and follow with the anticoagulation clinic for further instructions. Pending Studies at Discharge: No Stand-Alone Forms: My [facility] [employer], Smoking Cessation Medications and DC Order Prescriptions: Continued atorvastatin 40 mg tablet 40 mg PO QPM RF: 0 terazosin 2 mg capsule 2 mg PO QPM RF: 0 warfarin 5 mg tablet 2.5 mg PO 5XWK RF: 0 warfarin 5 mg tablet 5 mg PO 2XWK RF: 0 lisinopril-hydrochlorothiazide 10-12.5 mg tablet 1 tab PO QPM RF: 0 cholecalciferol (vitamin D3) [Vitamin D3] 25 mcg (1,000 unit) Tablet 25 - 50 mcg PO DAILY RF: 0 magnesium oxide 400 mg magnesium Capsule 400 mg PO DAILY RF: 0 Discharge Orders: Discharge Order (Routine); Ordered 10/29/21 Ordered By: Dell Pruett Admission Data Admit Date/Time: 10/28/21 13:13 Attending Provider: Dell Pruett Admit Provider: Kerry Ramires Primary Care Provider: Tereso Randall Other Providers: Dell Pruett ; Adi Jaramillo
[2021-10-29] MEDS ORDERED: WARFARIN SOD 2.5 MG TAB PO SCH (16:00)
[2021-10-29] MEDS ORDERED: LISINOPRIL/HCTZ 10/12.5MG TAB PO SCH (21:00)
[2021-11-01] MEDS ORDERED: WARFARIN SOD 5 MG TAB PO SCH (16:00)
== END 2021-10-29 14:34 | disposition home or self-care (01) ==
LOC: ED 10:22 → 2S 10:22 → SUATTDRO 13:13 → 2S 14:46